=== PATIENT | female | born 1935 | race Hispanic/Latino ===

== ENCOUNTER 2018-03-21 11:43 | Outpatient (CLI) | payer MEDICARE, BC | END 2018-03-21 11:44 | disposition home or self-care (01) | LOC: RAD 11:43 | DX: R06.09 Other forms of dyspnea (principal) ==

== ENCOUNTER 2018-04-19 06:08 | Day surgery (SDC) | payer MEDICARE, BC ==
[2018-04-11 13:19] VITALS: BMI 24.5
[2018-04-19] MEDS ORDERED: Iohexol 350mgl/ml 50 ML ONE (06:45)
[2018-04-19] MEDS ORDERED: Lidocaine PF 2% (5 ml) Inj (For Cardiac Arrhy) ONE (06:45)
[2018-04-19] MEDS ORDERED: Iohexol 350 MG/100 ML VIAL ONE (06:45)
[2018-04-19] MEDS ORDERED: Midazolam 2 MG/2 ML VIAL ONE (07:27)
[2018-04-19] MEDS ORDERED: Sodium Chloride 0.9% 1,000 ML IV SCH (08:00)
[2018-04-19 08:22] VITALS: TEMP 98.1
[2018-04-19 08:23] VITALS: RESP 18
[2018-04-19 10:05] VITALS: O2SAT 93
[2018-04-19 10:44] VITALS: BP 163/71; PULSE 65
--- NOTE | 2018-04-19 16:35 | CARDCATH ---
PROCEDURE DATE: 04/19/2018 PROCEDURES: 1. Selective left and right coronary angiography. 2. Left ventriculography. 3. Right femoral arteriography. 4. Angio-Seal deployment. HISTORY: This is an 82-year-old woman with known coronary artery disease, status post prior PCI of her LAD, who has had worsening exertional dyspnea. Stress test showed evidence of a fixed defect and worsening left ventricular dysfunction. Cardiac catheterization was advised. INDICATIONS: 1. Exertional dyspnea. 2. Known coronary artery disease, abnormal stress test. FINDINGS: HEMODYNAMICS: The aortic pressure was 140/70, left ventricular pressure 140/14. CORONARY ANATOMY: 1. The left mainstem was normal. 2. The left anterior descending artery had a patent stent in its early mid portion with evidence of mild in-stent restenosis of no more than 20 to 30%. The LAD and diagonal branches were otherwise unremarkable. 3. The left circumflex artery gave rise to two moderate-sized obtuse marginal branches. The circumflex system was free of disease. 4. The right coronary artery was of moderate size and dominant. This had mild diffuse irregularities with no evidence of high-grade obstructive stenoses. LEFT VENTRICULOGRAPHY: A hand injection was performed of the ventricle revealing evidence of mild to moderate distal anterolateral and apical hypokinesis with an overall ejection fraction of 40%. There was no aortic valve gradient noted on catheter pullback. Mitral regurgitation was not assessed. RIGHT FEMORAL ARTERIOGRAPHY: Right femoral arteriogram was performed in the LUO projection. This revealed no evidence of significant disease with appropriate level of arterial puncture. The puncture site was then closed with deployment of an Angio-Seal device. CONCLUSION: 1. Patent LAD stent. 2. No evidence of significant obstructive coronary artery disease. 3. Mild to moderate reduced LV systolic dysfunction. RECOMMENDATIONS: Given the above findings, continued medical therapy was advised. Additional afterload reduction therapy and mild diuretic use will be recommended. Beta joan therapy and statin therapy should continue. Haroon Wolfe MD cc: Thomas Cuellar MD [email or web address]
== END 2018-04-19 12:15 | disposition home or self-care (01) ==
LOC: CATH 06:08
PROVIDERS: ATTEND Internal Medicine Cardiovascular Disease
DX: I25.10 Atherosclerotic heart disease of native coronary artery without angina pectoris (principal); T82.855A Stenosis of coronary artery stent, initial encounter; Y83.8 Other surgical procedures as the cause of abnormal reaction of the patient, or of later complication, without mention of misadventure at the time of the procedure; I10 Essential (primary) hypertension
CPT/HCPCS: 36415; 86850; 86900; 93458; 99152; C1760; C1769; C2629; J1644; J2250; J3010; J7030; J7040; Q9967